=== PATIENT | female | born 1985 | race Caucasian/White ===

== ENCOUNTER 2022-12-22 17:48 | Emergency (ER) | payer OTHER, SELFPAY ==
[2022-12-22 18:03] VITALS: BP 141/90; PULSE 116; RESP 20; TEMP 36.4; O2SAT 99; BMI 23.9
--- NOTE | 2022-12-22 18:09 | CRLHL7_ITS ---
For Patients: As a result of the Cures Act, medical imaging exams and procedure reports are released immediately into your electronic medical record. You may view this report before your referring provider. If you have questions, please contact your health care provider. Indication: .KICKED BY HORSE AND FELL Technique: Two views left forearm. Comparison: None. Findings/Impression: Acute complete nondisplaced fracture of the proximal aspect of the distal 3rd shaft of the ulna. Adjacent soft tissue swelling. Joint spaces are maintained. Bony mineralization is age appropriate. Dictated by Axel Banks MD @ 12/22/2022 7:23:59 PM (Electronically Signed)
--- NOTE | 2022-12-22 18:09 | CRLHL7_ITS ---
For Patients: As a result of the Century Cures Act, medical imaging exams and procedure reports are released immediately into your electronic medical record. You may view this report before your referring provider. If you have questions, please contact your health care provider. INDICATION: KICKED BY HORSE AND FELL TECHNIQUE: Chest 2 views. COMPARISON: 01/10/10 FINDINGS: Cardiovascular and mediastinum: Heart size and vasculature are normal in caliber and appearance. Mediastinum is within normal limits. Lungs and pleural spaces: Lungs are clear. No sign of infiltrate or mass. No sign of pleural effusion. No pneumothorax. Bones and soft tissues: No significant findings. IMPRESSION: Unremarkable chest. Dictated by: Axel Collins MD @ 12/22/2022 18:37:28 (Electronically Signed)
--- NOTE | 2022-12-22 18:12 | ED_ITS ---
HPI - Fall General Chief Complaint: Fall/Minor Trauma Stated Complaint: fell of a horse- got hit on her chest/arm/wrist Time Seen by Provider: 12/22/22 18:01 History of Present Illness HPI Narrative: This patient comes in for evaluation and treatment of injuries from a fall from her horse. She states that she was dismounting or horse and got her foot caught in the stir up at which time the horse started getting jumpy. At some point the horse kicked her in the chest. She states that she had trouble catching her breath for a good minute or so. She did not hit her head or have loss of consciousness. She does have a laceration on her left forearm. She has bruising on the lower anterior chest also. She was able to get up and ambulate and over self home and then came in with her daughter for evaluation. Related Data Previous Rx's Medication Instructions Recorded cephalexin 500 mg capsule 500 mg PO TID 7 days #21 caps 12/22/22 hydrocodone 5 mg-acetaminophen 325 1 tab PO Q4-6H PRN pain #20 tabs 12/22/22 mg tablet ketorolac 10 mg tablet 10 mg PO Q8H 5 days #15 tabs 12/22/22 Allergies Allergy/AdvReac Type Severity Reaction Status Date / Time ciprofloxacin Allergy Intermediate Verified 12/22/22 18:02 Review of Systems Status of ROS: Reports: 10 or more systems reviewed and unremarkable except as noted in History and below Narrative: Constitutional: No fevers, no weight gain or loss. Eyes: No discharge. No vision changes. HENT: No congestion, no sore throat, no ear pain. Cardiovascular: No palpitations. Respiratory: No shortness of breath, no wheezes, no cough. Gastrointestinal: No abdominal pain, no vomiting, no diarrhea. Genitourinary: No dysuria, no hematuria. Musculoskeletal: Normal range of motion. Skin: No rashes, no pruritis. Neurological: No dizziness, weakness, sensory change, speech change. Endo/Heme/Allergies: No bruising or bleeding. No polydipsia. Pysch: no suicidality, no anxiety, no insomnia. All other systems reviewed and are negative. PFSH PFSH Social History Smoking Status: Never smoker Do you use any of these nicotine containing products: None How often do you have a drink containing alcohol: never AUDIT-C Alcohol total score: 0 Non-prescribed substance use: denies use Exam Narrative: Exam Narrative: Constitutional: Well-developed, well-nourished, no acute distress. HEENT: Normocephalic, atraumatic. Neck: Normal range of motion. Nontender. Supple. Heart: Regular. No murmurs. Normal rate. Intact distal pulses. Lungs: Clear to auscultation. No wheezes, rhonchi, or rales. Chest: Erythema and bruising on the left anterior lower chest overlying the lower sternum. Abdomen: Normal bowel sounds. Nontender. No rebound tenderness. Genitalia: Deferred. Back: No midline tenderness. Normal range of motion. Extremities: Normal range of motion. Abrasion with mild swelling of her right wrist with normal range of motion of the wrist joint. The left forearm has a 2 cm linear laceration on the ulnar aspect. Skin: Intact. No rash. Warm. No erythema or pallor. Neurologic: No altered sensation. No weakness. Alert and oriented. GCS is 15. Psychiatric: No suicidality. No anxiety or depression. No insomnia. Nursing notes and vitals signs are reviewed. Const: Vital Signs, click to edit/add: Vital Signs - 24 hr 12/22/22 18:03 Temperature 97.5 F L Pulse Rate [Right Pulse Oximeter] 116 H Respiratory Rate 20 Blood Pressure [Ri ght Upper Arm] 141/90 H Pulse Oximetry 99 Oxygen Delivery Me thod Room Air Course Vital Signs Vital signs: Initial Vital Signs Temperature 97.5 F L 12/22/22 18:03 Temperature Source Temporal Artery Scan 12/22/22 18:03 Pulse Rate 116 H 12/22/22 18:03 Pulse Rhythm Regular 12/22/22 18:03 Respiratory Rate 20 12/22/22 18:03 Blood Pressure 141/90 H 12/22/22 18:03 Blood Pressure Mean 107 H 12/22/22 18:03 Blood Pressure Position Sitting 12/22/22 18:03 Pulse Oximetry 99 12/22/22 18:03 Oxygen Delivery Method Room Air 12/22/22 18:03 Vital Signs Temperature 97.5 F L 12/22/22 18:03 Pulse Rate 116 H 12/22/22 18:03 Respiratory Rate 20 12/22/22 18:03 Blood Pressure 141/90 H 12/22/22 18:03 Pulse Oximetry 99 12/22/22 18:03 Oxygen Delivery Method Room Air 12/22/22 18:03 Temperature 97.5 F L 12/22/22 18:03 Pulse Rate 116 H 12/22/22 18:03 Respiratory Rate 20 12/22/22 18:03 Blood Pressure 141/90 H 12/22/22 18:03 Pulse Oximetry 99 12/22/22 18:03 Oxygen Delivery Method Room Air 12/22/22 18:03 MDM - Fall MDM Narrative Medical decision making narrative: This patient comes in after injuries from getting kicked by horse. She has a bruise on her lower anterior chest. Chest x-ray is obtained and shows no acute findings. Fast exam also returns with normal results. X-ray of her left forearm does show a nondisplaced fracture through the shaft of the ulna. The patient has a 2 cm linear laceration in this same area. The wound was cleansed and after anesthesia with 1% lidocaine with epinephrine 3 sutures were placed in interrupted fashion. Wound was bandaged and then her arm was placed in a volar splint using Ortho Glass material. The patient also received a rib belt. A prescription for Keflex is provided as this is technically an open fracture. She also received prescription for Toradol and Babcock. She is instructed to follow-up with orthopedic clinic for ongoing management. Sutures will need to be removed in 7-10 days. Procedure name: ED POC EFAST Performing physician: Dr. Hoffmann Indication: Blunt thoracoabdominal trauma Findings: Hepato renal space shows no evidence of free fluid. Subphrenic and/or splenorenal space shows no evidence of free fluid. Suprapubic views show no evidence of free fluid. Subxiphoid (or PSLA) cardiac view shows no evidence of free pericardial fluid and sliding lung signs are present in left and right apical lung views. Interpretation: Negative EFAST exam. ECG Data Attestation: I personally reviewed and interpreted this ECG as follows: Interpretation: Sinus tachycardia, rate 103 beats per minute. There are no specific ST or T- wave abnormalities. Discharge Plan Discharge Clinical Impression: Chest wall contusion, Fracture of forearm, distal, left, open Patient Disposition: Home w/ Parent or Adult Condition: Stable Additional Instructions: Wear splint and follow-up with orthopedic clinic. Call [phone] for appointment. Sutures will need to be removed from the left forearm in 7-10 days. Wear rib belt as needed and take medications as needed and directed. Return if worsening. Prescriptions: New hydrocodone-acetaminophen 5-325 mg tablet 1 tab PO Q4-6H PRN (Reason: pain) Qty: 20 0RF ketorolac 10 mg tablet 10 mg PO Q8H 5 Days Qty: 15 0RF cephalexin 500 mg capsule 500 mg PO TID 7 Days Qty: 21 0RF Follow Up/Referrals: Shruthi Haley MD [Staff Physician] - Stand Alone Forms: [facility] Info Instructions
[2022-12-22] MEDS: HYDROCODONE-ACETAMIN 5-325 MG 1 TAB PO (18:17)
== END 2022-12-22 20:05 | disposition home or self-care (01) ==
PROVIDERS: Emergency Provider Emergency Medicine Emergency Medical Services
DX: S52.202A Unspecified fracture of shaft of left ulna, initial encounter for closed fracture (principal); S51.812A Laceration without foreign body of left forearm, initial encounter; V80.010A Animal-rider injured by fall from or being thrown from horse in noncollision accident, initial encounter; S20.219A Contusion of unspecified front wall of thorax, initial encounter
CPT/HCPCS: 12001; 71046; 73090; 76604; 76705; 93005; 93308; 99284; A9270

== ENCOUNTER 2024-03-15 16:09 | Emergency (ER) | payer OTHER, SELFPAY ==
--- NOTE | 2024-03-15 16:12 | CRLHL7_ITS ---
For Patients: As a result of the Century Cures Act, medical imaging exams and procedure reports are released immediately into your electronic medical record. You may view this report before your referring provider. If you have questions, please contact your health care provider. Indication: Left calf swelling Technique: Real-time longitudinal and transverse sonographic grayscale imaging with and without compression, as well as color and duplex Doppler imaging before and after augmentation, was obtained of the deep system of the left lower extremity, including the common femoral, femoral, popliteal, posterior tibial, and peroneal veins. Comparison: None. Findings: Common femoral vein: No evidence of thrombus. Femoral vein: No evidence of thrombus. Popliteal vein: No evidence of thrombus. Calf veins: Patent. Impression: No ultrasound evidence of deep venous thrombosis. Dictated by Yossi Payan MD @ 03/15/2024 5:22:00 PM (Electronically Signed)
--- NOTE | 2024-03-15 16:12 | ED.GENADULT ---
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 She is generally healthy but does smoke tobacco. She presents to the ER today with atraumatic pain and swelling involving her left calf. She recalls that she woke up with a crampy feeling in her left calf 2 days ago on Wednesday morning. She does not recall any previous injury any new activity that would have injured her calf lately. There may have been a charley horse that morning when she woke up. Ever since then she has had a low-grade ache in her left calf. Hurts more when she dorsiflexes then when she plantar flexes her ankle. She has not noticed any bruising. No redness or swelling warmth. No fever. No pain in her knee. No pain down to her ankle. No pain in her quad or hamstring or in her thigh. No back pain. No numbness or weakness in her leg. She is a tobacco user. She has no current control use. No recent travel or immobilization. No history of DVT or PE. She is generally healthy. She did recently have a shingles outbreak on her face but has not completely recovered. No rash on her calf. Related Data Home Medications ?Medication ?Instructions ?Recorded ?Confirmed bupropion HCl 150 mg 24 hr tablet, 150 mg PO QAM 12/25/22 03/15/24 extended release escitalopram oxalate 10 mg tablet 10 mg PO DAILY 12/25/22 03/15/24 lorazepam 0.5 mg tablet 0.5 mg PO DAILY PRN 12/25/22 03/15/24 Allergies Allergy/AdvReac Type Severity Reaction Status Date / Time phenazopyridine Allergy Severe Anaphylaxis Verified 03/15/24 16:17 ciprofloxacin Allergy Intermediate Verified 03/15/24 16:17 [facility] Medical History Recurrent herpes labialis ?B00.1 - Herpesviral vesicular dermatitis (ICD-10) Nicotine dependence ?F17.200 - Nicotine dependence, unspecified, uncomplicated (ICD-10) Mixed anxiety depressive disorder ?F41.8 - Other specified anxiety disorders (ICD-10) Fatigue ?R53.83 - Other fatigue (ICD-10) Endometriosis ?N80.9 - Endometriosis, unspecified (ICD-10) Depression ?F32.A - Depression, unspecified (ICD-10) Chronic insomnia ?F51.04 - Psychophysiologic insomnia (ICD-10) Surgical History Status post hysterectomy (02/12/16) ?Z90.710 - Acquired absence of both cervix and uterus (ICD-10) Status post cone biopsy of cervix (2010) ?Z98.890 - Other specified postprocedural states (ICD-10) Family History Mother Breast cancer, Onset Age: 48 Paternal Grandfather Colon cancer, Onset Age: 60 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 Polite. Non-toxic appearing. Politely declines offered pain medication. HENT: Head: Atraumatic. No signs of injury. Nose: No nasal discharge. Mouth/Throat: Mucous membranes are moist. . No trismus. No stridor. Airway patent. Eyes: Conjunctivae normal and EOM are normal. Pupils are equal, round, and reactive to light. Right eye exhibits no discharge. Left eye exhibits no discharge. No icterus. Neck: Normal range of motion. Neck supple. No adenopathy. No stridor. Cardiovascular: Normal rate and regular rhythm. No murmur heard. No murmurs, rubs, or gallops. Brisk capillary refill Pulmonary/Chest: Effort normal. No stridor. No respiratory distress. No wheezes.No rhonchi. No rales. No retractions. Abdominal: Soft. Bowel sounds are normal. No distension. No mass. There is no tenderness. There is no rebound and no guarding. Musculoskeletal: Upper extremities are normal. Right lower extremity is normal. Left lower extremity: Hip is nontender. Normal range of motion. Quadriceps, hamstring, femur, thigh are nontender. Normally motion in the knee. No knee tenderness. No swelling. No redness. No warmth. No pain or swelling in the popliteal fossa. Inspection of the calf reveals subtle swelling when compared to the right. No bruising. No redness. No rash. No warmth to palpation to suggest a cellulitis. She is mildly tender over the muscle belly of the gastrocs/soleus. Not really tender over the Achilles tendon itself. She notes pain is increased when she plantar flexes her ankle against resistance. She also has mild pain with dorsiflexion but much less so. Ankle is nontender, no swelling. Foot is nontender no swelling. Strong DP and PT pulses. Normal brisk distal cap refill. No back tenderness. Neurological: Alert. Normal strength. No cranial nerve deficit or sensory deficit. Coordination normal. GCS eye subscore is 4. GCS verbal subscore is 5. GCS motor subscore is 6. Intact distal sensory function in the medial and lateral foot, dorsal 1st webspace, sole of the foot, mediolateral calf. Strength 5/5 bilaterally in the toe extensors, toe flexors, gastrocnemius, tibialis anterior, quadriceps, hamstring. Skin: Skin is warm. No rash noted. Const: Vital Signs, click to edit/add: Vital Signs - 24 hr 03/15/24 16:15 Temperature 98.1 F Pulse Rate [Left P ulse Oximeter] 88 Respiratory Rate 18 Blood Pressure [Ri ght Upper Arm] 124/84 Pulse Oximetry 99 Oxygen Delivery Me thod Room Air Course Vital Signs Vital signs: Initial Vital Signs Temperature 98.1 F 03/15/24 16:15 Temperature Source Temporal Artery Scan 03/15/24 16:15 Pulse Rate 88 03/15/24 16:15 Pulse Rhythm Regular 03/15/24 16:15 Pulse Strength 4+ Bounding 03/15/24 16:15 Respiratory Rate 18 03/15/24 16:15 Blood Pressure 124/84 03/15/24 16:15 Blood Pressure Mean 97 03/15/24 16:15 Blood Pressure Position Sitting 03/15/24 16:15 Pulse Oximetry 99 03/15/24 16:15 Oxygen Delivery Method Room Air 03/15/24 16:15 Vital Signs Temperature 98.1 F 03/15/24 16:15 Pulse Rate 88 03/15/24 16:15 Respiratory Rate 18 03/15/24 16:15 Blood Pressure 124/84 03/15/24 16:15 Pulse Oximetry 99 03/15/24 16:15 Oxygen Delivery Method Room Air 03/15/24 16:15 Temperature 98.1 F 03/15/24 16:15 Pulse Rate 88 03/15/24 16:15 Respiratory Rate 18 03/15/24 16:15 Blood Pressure 124/84 03/15/24 16:15 Pulse Oximetry 99 03/15/24 16:15 Oxygen Delivery Method Room Air 03/15/24 16:15 Medical Decision Making MDM Narrative Medical decision making narrative: 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 She did have a cramp in her left calf muscle and has had pain since then. Concern here is for possible DVT of left lower extremity. Ultrasound is obtained and is fortunately negative for DVT. Discussed with the patient that although ultrasound is normal in reassuring, if pain is persistent for 7 days or gets worse, she should return to the ER for re-evaluation and repeat DVT. If she has worsening pain or other symptoms she should come back to the ER immediately and not wait. At this point exam does not show any evidence for any redness or cellulitis. No palpable or alter sonographically apparent hematoma. No evidence for shingles. Not having any back pain or any radicular numbness or pain to suggest a lumbar radiculopathy. Has been no recent trauma to raise concern for possible tibia or fibular fracture. With acute onset of pain 2 mornings ago, I have low suspicion for other cause such as evolving tumor. However if pain worsens or swelling progresses she would require further evaluation such as MR imaging or radiography. She has strong distal pulses and normal capillary refill. No evidence for acute limb ischemia. No associated knee or ankle pain to raise concern for knee sprain her ankle sprain or any joint infection or gout. Patient is comfortable with plan to pursue watchful waiting at home. We discussed rest, ice, elevation, NSAIDs. She understands return precautions and need for follow-up if not resolved for repeat ultrasound. Imaging Data US venous LLE: Attestation: I have reviewed the pertinent imaging results. Radiologist's impression: Findings: Common femoral vein: No evidence of thrombus. Femoral vein: No evidence of thrombus. Popliteal vein: No evidence of thrombus. Calf veins: Patent. Impression: No ultrasound evidence of deep venous thrombosis. Discharge Plan Discharge Clinical Impression: Pain of left calf Patient Disposition: Home, Self-Care Condition: Stable Instructions: Leg Pain (ED) Additional Instructions: As we discussed, your ultrasound looks good tonight. For now we suspect your calf pain is probably due to a muscle injury from the cramp. However, please monitor carefully. If you have worsening swelling, discoloration of your foot or leg, new redness or rash or fever, or any concerns, please come back to the ER or see your doctor right away. If the pain is not completely resolved within 7 days, please follow-up with the ER for a repeat ultrasound. Prescriptions: No Action escitalopram oxalate 10 mg tablet 10 mg PO DAILY bupropion HCl 150 mg tablet extended release 24 hr 150 mg PO QAM lorazepam 0.5 mg tablet 0.5 mg PO DAILY PRN Follow Up/Referrals: Provider,Not a Local [Primary Care Provider] - Stand Alone Forms: [employer] Info Instructions
[2024-03-15 16:15] VITALS: BP 124/84; PULSE 88; RESP 18; TEMP 36.7; O2SAT 99; BMI 24.8
--- OUTSIDE RECORDS SUMMARY | 2024-03-15 17:11 | XMS_ITS | Clinical Summary ---
Author Organization [facility] Address [place], [place] [address] Care Team Providers Care Batcher Operator Name Role Phone Teddy Montero MD Primary Care Provider + [phone] Allergies Active Allergy Reactions Criticality Noted Date Comments Ciprofloxacin Anaphylaxis High 07/02/2021 Phenazopyridine Anaphylaxis High 07/02/2021 Medications Medication Sig Dispensed Refills Start Date End Date Status escitalopram oxalate (LEXAPRO) 10 mg tabletIndications:D epression, major, single episode, moderate (HC),Anxiety Take 1 Tablet (10 mg) by mouth every morning. 90 Tablet 4 09/02/2023 Active buPROPion (WELLBUTRIN XL) 300 mg Extended-Release tabletIndications:D epression, major, single episode, moderate (HC) Take 1 Tablet (300 mg) by mouth once daily. 90 Tablet 3 09/02/2023 Active LORazepam (ATIVAN) 0.5 mg tabIndications:Ibrahima c attack TAKE 1 TABLET(0.5 MG) BY MOUTH EVERY 6 HOURS NEEDED FOR ANXIETY 15 Tablet 11/08/2023 Active valACYclovir (VALTREX) 1 gram tabletIndications:H erpes labialis TAKE 2 TABLETS(2 GRAMS) BY MOUTH TWICE DAILY FOR 1 DAY. MAY REPEAT DOSE NEEDED 16 Tablet 1 11/08/2023 Active HYDROcodone-acetami nophen (5-325 mg/tablet)Indicatio ns:Herpes zoster without complication Take 1 Tablet by mouth every 6 hours if needed for Pain. Max acetaminophen dose: 4000 mg in 24 hrs. 12 Tablet 12/13/2023 Active Active Problems Problem Noted Date Diagnosed Date Depression, major, single episode, moderate 05/11 Panic attack 06/04/2022 Anxiety 01/22/2022 Resolved Problems Problem Noted Date Diagnosed Date Resolved Date Adjustment disorder with depressed mood 01/22/2022 06/04/2022 WARTS, VIRAL NOS 02/01/2001 12/22/2021 CONTRACEPTIVE PRESCRIPTION, ORAL AGENT 03/11/2000 01/22/2022 Other acne 09/22/1999 01/22/2022 DEPRESSIVE DISORD, MAJOR SNGL EPISD, MILE 09/18/1999 01/22/2022 Dysmenorrhea 08/11/1999 01/22/2022 Encounters Date Type Department Care Team Description 03/15/2024 Nurse [place] [facility] [place] [address] [facility] [place] [address] Teddy Montero MD Leg Pain/problem 03/15/2024 Telephone [facility] [place] [address] [place], [place] [id number] Teddy Montero MD Error-please disregard from Last 3 Months Immunizations Name Administration Dates Next Due DTP 08/11/1999 Hepatitis B (Adult) 11/07/2003 Hepatitis B (Peds) 11/07/2003 Influenza Intradermal PF 18-64 yrs 02/10/2016,,03/04/2014 Influenza RIV4 (Age 18+ Year s) PRESERV FREE 02/08/2019 Influenza, IIV3 (Age 6-35 mos) ,02/09/2018,01/28/2012,2010,02/11/2010 Influenza, IIV4 03/29/2023,02/18/2022,02/19/2021 Influenza, Intradermal, Quad rivalent, Pf 02/24/2017 Influenza,LAIV4 Live Intrana marv (Flumist) 02/21/2013 MMR 08/11/1999,01/04/1997 Oral Polio Vaccine 08/11/1999 Polio Virus, Unspecified 03/22/1985,01/18/1985 Td (Age >=7 Years) 01/04/1997 Tdap 05/26/2018,01/28/2012 Family History Medical History Relation Name Comments Cancer-breast Mother Genetic Other 1 mother: A\T\W~f ather: asthma, smoker~grprs: ovarian CA, lung CA, multiple myeloma, AODM~sibs: A\T\W Genetic Other 2 mother: A\T\W~f ather: asthma, smoker~grprs: ovarian CA, lung CA, multiple myeloma, AODM~sibs: A\T\W~hypertension Relation Name Status Comments Mother Alive Other 1 Other 2 Social History Tobacco Use Types Packs/Day Years Used Date Smoking Tobacco: Former Cigarettes Q uit: 03/01/2021 Smokeless Tobacco: Never Tobacco Cessation:Counseling Given: Not Answered Comments:smoking 1-2 a day Alcohol Use Standard Drinks/Week Comments Yes 0 (1 standard drink = 0.6 oz pur e alcohol) Alcoholic Drinks/day: 0 PHQ-2 Answer Date Recorded PHQ-2 TOTAL SCORE 3 09/01/2023 Social Connections Answer Date Recorded Frequency of Communication with Friends and Fami ly Not on file 12/22/2021 Sex and Gender Information Value Date Recorded Sex Assigned at Not on file Gender Identity Not on file Sexual Orientation Not on file Obstetrics History Last Filed Vital Signs Vital Sign Reading Time Taken Comments Blood Pressure 120/80 01/22/2022 2:12 PM CDT Pulse 88 01/22/2022 2:12 PM CDT Temperature 36.6 ??C (97.8 ??F) 07/02/2021 6:00 PM CS T Respiratory Rate 18 07/02/2021 6: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 Oxygen Saturation 100% 07/02/2021 6: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 Inhaled Oxygen Concentration - - Weight 59.4 kg (131 lb) 01/22/2022 2:12 PM CDT Height 160 cm (5' 3) 01/22/2022 2:12 PM CDT Body Mass Index 23.21 01/22/2022 2:12 PM CDT Plan of Treatment Health Maintenance Due Date Last Done Comments HIV for age 15-65 11/23/1999 BMI (ht and wt on same day) for age 18+ 01/22/2023 01/22/2022 COVID-19 vaccine series ( season) 2024 02/28/2021, 02/07/2021 Influenza for age 9-49 01/09/2024 3, 02/18/2022, 02/19/2021, Additional history exists Depression screening for age 12+ 09/01/2024 09/02/2023, 09/01/2023, 09/01/2023, Additional history exists Tetanus booster 05/26/2028 05/26/2018, 01/09, 01/04/1997 Hepatitis C screening for age 18-79 Completed 11/07/2003 Tdap Completed 05/26/2018, 01/28/2012 Pneumococcal series for age 6-64 Aged Out No longer eligible based on patient's age to complete this topic Procedures Procedure Name Priority Date/Time Associated Diagnosis Comments ANTI HCV Routine 11/07/2003 9:35 AM CDT from Last 3 Months or Most Recently Relevant to Health Maintenance Results * ANTI HCV (11/07/2003 9:35 AM CDT) ANTI HCV Non-reactiv e 11/07/2003 9:35 AM CDT Narrative 11/09/2003 11:25 AM CDT Ordered by an unspecified provider. Other Clinical Staff SEND OUTS from Last 3 Months or Most Recently Relevant to Health Maintenance Care Teams Batcher Operator Relationship Specialty [place] [address] [place] [address] PCP - General Family Practice 12/13/23
== END 2024-03-15 17:37 | disposition home or self-care (01) ==
PROVIDERS: Emergency Provider Emergency Medicine
DX: M79.605 Pain in left leg (principal)
CPT/HCPCS: 93971; 99283; 99284

== ENCOUNTER 2024-03-29 03:24 | Emergency (ER) | payer OTHER, SELFPAY ==
[2024-03-29] VITALS (10 sets, daily range): BP systolic 113–153; BP diastolic 66–110; PULSE 85–145; RESP 28–60; TEMP 37.3; O2SAT 85–99; BMI 24.8
[2024-03-29] MEDS: IPRAT-ALBUT 0.5-2.5 MG/3 ML NEB 1 NEB IH (03:50)
--- NOTE | 2024-03-29 03:50 | CRLHL7_ITS ---
For Patients: As a result of the Century Cures Act, medical imaging exams and procedure reports are released immediately into your electronic medical record. You may view this report before your referring provider. If you have questions, please contact your health care provider. INDICATION: Cough, dyspnea, left lower chest pain COMPARISON: 12/22/2022 TECHNIQUE: PA and lateral 2 view chest. FINDINGS: Lung volumes are good. Focal consolidation in the medial basal segments of the left lower lobe. No findings of cavitation. No pulmonary edema. No pleural effusion. No pneumothorax. No pneumomediastinum. Normal cardiomediastinal silhouette. Bones: Normal for age. IMPRESSION: Left lower lobe pneumonia. No cavitation. No parapneumonic effusion. Dictated by Nadia Miles MD @ 03/29/2024 4:35:38 AM (Electronically Signed)
--- NOTE | 2024-03-29 03:51 | ED.GENADULT ---
HPI - General Adult General Date Seen: 03/29/24 Chief complaint: Shortness of Breath/Dyspnea Stated complaint: Short of breath Time Seen by Provider: 03/29/24 03:50 History of Present Illness HPI narrative: 38-year-old female who I saw here in the ER couple of weeks ago for atraumatic left calf pain with a negative DVT ultrasound in the ER (up like calf pain is completely resolved). She presents to the ER tonight with her for evaluation of cough and shortness of breath and left anterolateral lower chest pain. She has had a cough with some shortness of breath for about 5 days, since last Wednesday morning. Cough has been fairly persistent, nonproductive. She has been a little bit short of breath all week and in for the past couple of days. For couple of days she had some subjective chills and probably was running a fever but did not measure her temperature. Tonight her breathing became more short. She also noticed that she has some gurgling or a discomfort like there is fluid rattling in her left lower ribs. She has been trying to rub her chest to get the fluid out but it just woke up loose. She is not running a fever tonight She is not having any ongoing pain in her calf. No leg swelling. Her daughter is also sick with similar symptoms. She is a smoker. She has no previous history of asthma or COPD. She has never had to use an inhaler. Related Data Home Medications ?Medication ?Instructions ?Recorded ?Confirmed bupropion HCl 150 mg 24 hr tablet, 150 mg PO QAM 12/25/22 03/15/24 extended release escitalopram oxalate 10 mg tablet 10 mg PO DAILY 12/25/22 03/15/24 lorazepam 0.5 mg tablet 0.5 mg PO DAILY PRN 12/25/22 03/15/24 Allergies Allergy/AdvReac Type Severity Reaction Status Date / Time phenazopyridine Allergy Severe Anaphylaxis Verified 03/15/24 16:17 ciprofloxacin Allergy Intermediate Verified 03/15/24 16:17 [facility] Medical History Recurrent herpes labialis ?B00.1 - Herpesviral vesicular dermatitis (ICD-10) Nicotine dependence ?F17.200 - Nicotine dependence, unspecified, uncomplicated (ICD-10) Mixed anxiety depressive disorder ?F41.8 - Other specified anxiety disorders (ICD-10) Fatigue ?R53.83 - Other fatigue (ICD-10) Endometriosis ?N80.9 - Endometriosis, unspecified (ICD-10) Depression ?F32.A - Depression, unspecified (ICD-10) Chronic insomnia ?F51.04 - Psychophysiologic insomnia (ICD-10) Surgical History Status post hysterectomy (02/12/16) ?Z90.710 - Acquired absence of both cervix and uterus (ICD-10) Status post cone biopsy of cervix (2010) ?Z98.890 - Other specified postprocedural states (ICD-10) Family History Mother Breast cancer, Onset Age: 48 Paternal Grandfather Colon cancer, Onset Age: 60 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 Alert. Very anxious, tachypneic, tachycardic. Seems to be hyperventilating. There is probably some component of panic overlying her other symptoms. She was not hypoxic but nurses placed her on nasal cannula to see if it would help assuage some of her anxiety and calm her breathing. HENT: Head: Atraumatic. Nose: Nose normal. Mouth/Throat: Oral mucosa is clear and moist. no trismus. Pharynx normal. Tonsils symmetric. No tonsillar enlargement, erythema, or exudate. Eyes: Conjunctivae normal. EOM normal. Pupils equal, round, and reactive to light. No scleral icterus. Neck: Normal range of motion. Neck supple. No tracheal deviation present. Cardiovascular: Tachycardic, about 105, regular rhythm. No gallop. No friction rub. No murmur heard. Symmetric radial artery pulses Pulmonary/Chest: Breathing rapidly.. No stridor. No respiratory distress. She has been taking rapid breast but is not moving a lot of air. There is limited airflow in her lungs which could represent significant bronchospasm but no focal rhonchi. No definite wheezing. No wheezes. No rales. No rhonchi . No tenderness. Abdominal: Soft. No distension. No mass. No tenderness. No rebound. No guarding. Musculoskeletal: RUE: Normal range of motion. No tenderness. No deformity LUE: Normal range of motion. No tenderness. No deformity RLE: Normal range of motion. No edema. No tenderness. No deformity . no calf pain or tenderness. LLE: Normal range of motion. No edema. No tenderness. No deformity. No calf pain or tenderness. Neurological: Alert and oriented to person, place, and time. Normal strength. CN II-VII intact. No sensory deficit. GCS eye subscore is 4. GCS verbal subscore is 5. GCS motor subscore is 6. Normal coordination Skin: Skin is warm, pink, well perfused but she is sweaty. Her shirt is damp from perspiration. No rash noted. No pallor. Normal capillary refill. Psychiatric: Normal mood. Polite. Seems anxious. Const: Vital Signs, click to edit/add: Vital Signs - 24 hr 03/29/24 03:24 Temperature 99.1 F Pulse Rate [Right Pulse Oximeter] 145 H Respiratory Rate 60 H Blood Pressure [Le ft Upper Arm] 153/110 H Pulse Oximetry 97 Oxygen Delivery Me thod Room Air Course Vital Signs Vital signs: Initial Vital Signs Temperature 99.1 F 03/29/24 03:24 Temperature Source Temporal Artery Scan 03/29/24 03:24 Pulse Rate 145 H 03/29/24 03:24 Respiratory Rate 60 H 03/29/24 03:24 Blood Pressure 153/110 H 03/29/24 03:24 Blood Pressure Mean 124 H 03/29/24 03:24 Blood Pressure Position Sitting 03/29/24 03:24 Pulse Oximetry 97 03/29/24 03:24 Oxygen Delivery Method Room Air 03/29/24 03:24 Vital Signs Temperature 99.1 F 03/29/24 03:24 Pulse Rate 145 H 11/20/24 03:24 Respiratory Rate 60 H 03/29/24 03:24 Blood Pressure 153/110 H 03/29/24 03:24 Pulse Oximetry 97 03/29/24 03:24 Oxygen Delivery Method Room Air 03/29/24 03:24 Temperature 99.1 F 03/29/24 03:24 Pulse Rate 145 H 03/29/24 03:24 Respiratory Rate 60 H 03/29/24 03:24 Blood Pressure 153/110 H 03/29/24 03:24 Pulse Oximetry 97 03/29/24 03:24 Oxygen Delivery Method Room Air 03/29/24 03:24 Medical Decision Making MDM Narrative Medical decision making narrative: This patient presents to the ER today for evaluation of a cough ongoing for the past or 6 days, with shortness of breath, also some discomfort like fluid rattling in her left lower chest. Differential is broad. She is not having any palpitations. She presented with sinus tachycardia up to 145. She also had an elevated respiratory rate at 60, which per triage nurse seem to be driven primarily by anxiety. We considered possible ACS, however workup with EKG and troponin is negative. HEART score is 1. With a couple of days of symptoms, I do not think the patient needs to be admitted for further sets of enzymes. EKG shows no evidence for pericarditis. Chest x-ray is ordered to evaluate for pneumonia, pneumothorax, pulmonary edema, pleural effusion, rib fracture, cardiomegaly. COVID/influenza PCR ordered. We considered PE for this patient. She did have some recent atraumatic calf pain with a negative DVT. She is not having any ongoing calf pain. Given her presenting tachycardia, we will check D-dimer but overall she is low risk for PE. No wheezing on her initial exam but she just was not moving much air. She is a smoker. Empiric DuoNeb ordered in case there is some component of bronchospasm. Signed out to my oncoming partner Dr. Stevenson. She will recheck the patient after the neb and follow-up on the results of her outstanding chest x-ray, labs. Clinical impression at this time 1. Cough 2. Dyspnea 3. Possible anxiety ECG Data Attestation: I personally reviewed and interpreted this ECG as follows: Interpretation: Normal sinus rhythm Rate: 97 NM: 128 QRS axis: Normal axis. No pathologic Q waves ST segment/T wave: No ST segment elevation or depression. Nonspecific T-wave flattening throughout. QTc: 426 Discharge Plan Discharge Prescriptions: No Action escitalopram oxalate 10 mg tablet 10 mg PO DAILY bupropion HCl 150 mg tablet extended release 24 hr 150 mg PO QAM lorazepam 0.5 mg tablet 0.5 mg PO DAILY PRN Follow Up/Referrals: Provider,Not a Local [Primary Care Provider] -
[2024-03-29 04:23] LABS: Basophils Absolute Auto 0.03 K/uL (0.00-0.30); Basophils Percent Auto 0.4 % (0.0-3.0); Eosinophils Percent Auto 1.3 % (0.0-7.0); Hematocrit 36.2 % (33.0-51.0); Hemoglobin* 12.1 gm/dL (12.0-16.0); Immature Granulocytes Abs Auto 0.02 K/uL (0.00-0.30); Immature Granulocytes Pct Auto 0.3 %; Mean Corpuscular HGB Conc 33 gm/dL (32-36); Mean Corpuscular Hemoglobin 30 pg (26-34); Mean Corpuscular Volume 89 fL (80-100); Monocytes Percent Auto 6.7 % (0.0-11.0); Neutrophils Percent Auto 75.3 % (42.0-72.0); Platelet Count* 270 K/uL (140-440); RDW Coefficient of Variation % 11.5 % (11.5-15.5); Red Blood Count 4.07 m/uL (4.00-5.20); White Blood Count* 7.75 K/uL (4.50-11.00)
[2024-03-29 04:30] LABS: Slide Review Reflex No
[2024-03-29 04:36] LABS: Chloride* 103 mmol/L (96-114); Potassium* 3.4 mmol/L (3.6-5.1); Sodium* 139 mmol/L (135-149)
[2024-03-29 04:39] LABS: Anion Gap 12 mEq/L (7-15); Blood Urea Nitrogen* 11 mg/dL (5-24); Carbon Dioxide* 24 mmol/L (20-32); Creatinine* 0.5 mg/dL (0.5-1.5); Est. Creatinine Clearance* 124.96; Estimated Glomerular Filt Rate 122 ml/min; Glucose* 99 mg/dL (60-115)
[2024-03-29 04:40] LABS: Calcium* 9.7 mg/dL (8.4-10.6)
[2024-03-29 04:46] LABS: D Dimer Quantitative* 0.53 ug/ml (0.00-0.50)
[2024-03-29 04:59] LABS: PCR FLU A Negative PCR FLU A (Negative); PCR FLU B Negative PCR FLU B (Negative); SARS PCR* Negative SARS-CoV-2 (Negative)
--- OUTSIDE RECORDS SUMMARY | 2024-03-29 05:05 | XMS_ITS | Clinical Summary ---
Author Organization [facility] Address [place], [place] [address] Care Team Providers Care Mattress Maker Name Role Phone Teddy Montero MD Primary Care Provider + [phone] Allergies Active Allergy Reactions Criticality Noted Date [...] Department Care Team Description 03/15/2024 [place] [facility] [place] [address] [facility] [place] [address] Teddy Montero MD Leg Pain/problem 03/15/2024 [place] [facility] [place] [address] [place], [place] [phone] Teddy Montero MD Error-please disregard from Last [...] 88 01/22/2022 2:12 PM CDT Temperature 36.6 C (97.8 F) 07/02/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 Respiratory Rate 18 07/02/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 Oxygen Saturation 100% 07/02/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 Inhaled Oxygen Concentration - - Weight 59.4 kg (131 lb) 01/22/2022 2:12 PM CDT Height 160 cm (5' 3) 01/22/2022 2:12 PM CDT Body Mass Index 23.21 01/22/2022 2:12 PM CDT Plan of Treatment Health Maintenance Due Date Last Done Comments HIV for age 15-65 11/23/1999 BMI (ht and wt on same day) for age 18+ 01/22/2023 01/22/2022 COVID-19 vaccine series (2023- season) 2024 02/28/2021, 02/07/2021 Influenza for age [...] Recently Relevant to Health Maintenance Care Teams Mattress Maker Relationship Specialty [place] [id number] [address] [address] PCP - General Family Practice 12/13/23
== END 2024-03-29 05:32 | disposition home or self-care (01) ==
PROVIDERS: Emergency Medicine; Emergency Provider Family Medicine; PCP Family Medicine
DX: J18.9 Pneumonia, unspecified organism (principal)
CPT/HCPCS: 36415; 71046; 80048; 84484; 85025; 85379; 87631; 93005; 99283; 99284; 99285

== ENCOUNTER 2025-03-21 07:22 | Day surgery (SDC) | payer OTHER, SELFPAY ==
[2025-03-21] VITALS (25 sets, daily range): BP systolic 92–152; BP diastolic 57–95; PULSE 65–105; RESP 14–19; TEMP 36.4–37.4; O2SAT 92–100; BMI 24.8; BMI 24.7
--- OUTSIDE RECORDS SUMMARY | 2025-03-21 07:24 | XMS_ITS | Clinical Summary ---
Author Organization [employer] [facility] [employer] Address [address] [place] [id number] Care Team Providers Care School Psychologist Name Role Phone Teddy Montero MD Primary Care Provider + [phone] Allergies Active Allergy Reactions Criticality Noted Date Comments Ciprofloxacin Anaphylaxis High 07/02/2021 Phenazopyridine Anaphylaxis High 07/02/2021 Medications LORazepam (ATIVAN) 0.5 mg tabIndications: Panic attack TAKE 1 TABLET(0.5 MG) BY MOUTH EVERY 6 HOURS NEEDED FOR ANXIETY 15 Tablet 06/16/2024 Active valACYclovir (VALTREX) 1 gram tabletIndicatio ns:Herpes labialis TAKE 2 TABLETS(2 GRAMS) BY MOUTH TWICE DAILY FOR 1 DAY. MAY REPEAT DOSE NEEDED 16 Tablet 1 01/15/2025 Active buPROPion (WELLBUTRIN XL) 300 mg Extended-Releas e tabletIndicatio ns:Depression, major, single episode, moderate (HC) Take 1 Tablet (300 mg) by mouth once daily. 90 Tablet 3 02/15/2025 Active escitalopram oxalate (LEXAPRO) 10 mg tabletIndicatio ns:Depression, major, single episode, moderate (HC),Anxiety Take 1 Tablet (10 mg) by mouth once daily in the morning. 90 Tablet 3 02/15/2025 Active Active Problems Problem Noted Date Diagnosed [...] Encounters Date Type Department Care Team Description 02/15/2025 1:00 PM CDT Office Visit [facility] [address] [place] [address] Teddy Montero MD Physical (Not fasting); Immunization/Injectio n (Flu shot/Declined HPV and COVID-19 /) 02/15/2025 Travel 02/12/2025 Travel 01/13/2025 Refill [facility] [id number] [place], [place] [address] [address] Teddy Montero MD Refill Request (Valacyclovir) 12/25/2024 Refill [facility] [address] [facility] [place] [place] [address] Teddy Montero MD Refill Request (Escitalopram Oxalate, Bupropion) from Last 3 Months Immunizations Immunization Administration Dates Next Due DTP 08/11/1999 Hepatitis B (Adult) 11/07/2003 Hepatitis B (Peds) 11/07/2003 INFLUENZA, IIV3 PF (AGE >= 6 MO) 02/15/2025,11/2024 Influenza Intradermal PF 18-64 yrs 02/10/2016,,03/04/2014 Influenza RIV4 (Age 18+ Year s) PRESERV FREE 02/08/2019 Influenza, IIV3 (Age 6-35 mos) ,02/09/2018,01/28/2012,2010,02/11/2010 Influenza, IIV4 03/29/2023,02/18/2022,02/19/2021 Influenza, Intradermal, Quad rivalent, Pf 02/24/2017 Influenza,LAIV4 Live Intrana marv (Flumist) 02/21/2013 MMR 08/11/1999,01/04/1997 Oral Polio Vaccine 08/11/1999 Polio Virus, Unspecified 03/22/1985,01/18/1985 Td (Age >=7 Years) 01/04/1997 Tdap 05/26/2018,01/28/2012 Family History Medical History Relation Name Comments Suicidality Brother Heart Disease Father Hypertension Father Cancer-breast Mother Genetic Other 1 mother: A\T\W~f ather: asthma, smoker~grprs: ovarian CA, lung CA, multiple myeloma, AODM~sibs: A\T\W Genetic Other 2 mother: A\T\W~f ather: asthma, smoker~grprs: ovarian CA, lung CA, multiple myeloma, AODM~sibs: A\T\W~hypertension Relation Name Status Comments Brother Father Alive Mother Alive Other 1 Other 2 Social History Tobacco Use Types Packs/Day Years Used Date Smoking Tobacco: Every Day Cigarettes 0.5 3.9 Started: 2021; Last attempted to quit: 03/01/2021 Passive Smoke Exposure: Current Smokeless Tobacco: Never Alcohol Use Standard Drinks/Week Comments Yes 0 (1 standard drink = 0.6 oz pur e alcohol) Alcoholic Drinks/day: 0 PHQ-2 Answer Date Recorded PHQ-2 TOTAL SCORE 3 02/15/2025 Social Connections Answer Date Recorded Do you often feel lonely or isolated from those around you? 0 02/12/2025 Financial Resource Strain Answer Date R ecorded Difficulty of Paying Living Expenses 3 02/12/2025 Difficulty of Paying Living Expenses Not on file 02/12/2025 Food Insecurity Answer Date Recorded Do you worry your food will run out before you are able to buy more? 1 02/12/2025 Transportation Needs Answer Date Record ed Does lack of transportation keep you from medica l appointments? 1 02/12/2025 Does lack of transportation keep you from work, meetings or getting things that you need? 1 02/12/2025 Housing Stability Answer Date Recorded What is your housing situation today? 1 02/12/2025 Utilities Answer Date Recorded Do you have trouble paying f or utilities (for example, heat, electricity, water, phone)? 1 02/12/2025 Comments No Sex and Gender Information Value Date Recorded Sex Assigned at Not on file Legal Sex Female 5:24 AM [employer] Gender Identity Not on file Sexual Orientation Not on file Obstetrics History Last Filed Vital Signs Vital Sign Reading Time Taken Comments Blood Pressure 122/78 02/15/2025 1:04 PM CDT Pulse 82 02/15/2025 1:04 PM CDT Temperature 36.6 C (97.8 F) 07/02/2021 6:00 PM CAR PILOT Respiratory Rate 18 07/02/2021 6:00 PM CAR PILOT Oxygen Saturation 100% 02/15/2025 1:04 PM CDT Inhaled Oxygen Concentration - - Weight 64.5 kg (142 lb 4.8 oz) 02/15/2025 1:04 P M CDT Height 162 cm (5' 3.78) 02/15/2025 1:04 PM CDT Body Mass Index 24.59 02/15/2025 1:04 PM CDT Plan of Treatment Health Maintenance Due Date Last Done Comments Pneumococcal series for age 6-49 (1 of 2 - PCV) 11/23/2003 Hepatitis B series for 19+ ( 2 of 3 - 3-dose series) 12/05/2003 11/07/2003, 11/07/2003 HPV series for age 9-45 (1 - 3-dose SCDM series) 11/23/2011 BMI (ht and wt on same day) for age 18+ 02/15/2026 02/15/2025, 01/22/2022 Depression screening for age 12+ 02/15/2026 02/15/2025, 09/11/2024, 09/02/2023, Additional history exists Tetanus booster 05/26/2028 05/26/2018, 01/09, 01/04/1997 RSV vaccine for adults or (1 - 1-dose 75+ series) 11/23/2059 Hepatitis C screening for ag e 18-79 Completed 11/07/2003 HIV for age 15-65 Completed 02/15/2025 Influenza Vaccine Completed 02/15/2025, , 03/29/2023, Additional history exists Procedures Procedure Name Priority Date/Time Associated Diagnosis Comments CBC WITH AUTO DIFFERENTIAL Routine 02/15/2025 1:38 PM CDT Fatigue, unspecified type ANTI HIV 1/2 Routine 02/15/2025 1:38 PM CDT Screening for HIV (human immunodeficiency virus) HEMOGLOBIN A1C Routine 02/15/2025 1:38 PM CDT Diabetes mellitus screening LIPID PANEL W REFLEX MEASURED LDL Routine 02/15/2025 1:38 PM CDT Lipid screening FSH Routine 02/15/2025 1:38 PM CDT Fatigue, unspecified type TSH WITH REFLEX Routine 02/15/2025 1:38 PM CDT Fatigue, unspecified type VITAMIN B12 Routine 02/15/2025 1:38 PM CDT Fatigue, unspecified type CBC WITH AUTO DIFFERENTIAL Routine 02/15/2025 1:38 PM CDT Fatigue, unspecified type ANTI HCV Routine 11/07/2003 9:35 AM CDT from Last 3 Months or Most Recently Relevant to Health Maintenance Results * CBC WITH AUTO DIFFERENTIAL (02/15/2025 1:38 PM CDT) Pathologist [facility] WHITE BLOOD CELL COUNT 6.5 3.8 - 10.8 Thousand/u L 02/16/2025 4:09 AM CDT [facility] RED BLOOD CELL COUNT 4.37 3.80 - 5.10 Million/uL 02/16/2025 4:09 AM CDT [facility] HEMOGLOBIN 13.3 11.7 - 15.5 g/dL 02/16/2025 4:09 AM CDT [facility] HEMATOCRIT 39.9 35.0 - 45.0 % 02/16/2025 4:09 AM CDT [facility] MCV 91.3 80.0 - 100.0 fL 02/16/2025 4:09 AM CDT [facility] MCH 30.4 27.0 - 33.0 pg 02/16/2025 4:09 AM CDT [facility] MCHC 33.3 32.0 - 36.0 g/dL 02/16/2025 4:09 AM CDT [facility] Comment: For adults, a slight decrease in the calculated MCHC value (in the range of 30 to 32 g/dL) is most likely not clinically significant; however, it should be interpreted with caution in correlation with other red cell parameters and the patient's clinical condition. RDW 12.0 11.0 - 15.0 % 02/16/2025 4:09 AM CDT [facility] PLATELET COUNT 261 140 - 400 Thousand/u L 02/16/2025 4:09 AM CDT [facility] MPV 10.9 7.5 - 12.5 fL 02/16/2025 4:09 AM CDT [facility] NEUTROPHILS 63 % 02/16/2025 4:09 AM CDT [facility] LYMPHOCYTES 28.7 % 02/16/2025 4:09 AM CDT [facility] MONOCYTES 5.7 % 02/16/2025 4:09 AM CDT [facility] EOSINOPHILS 1.5 % 02/16/2025 4:09 AM CDT [facility] BASOPHILS 1.1 % 02/16/2025 4:09 AM CDT [facility] ABSOLUTE NEUTROPHILS 4095 1500 - 7800 cells/uL 02/16/2025 4:09 AM CDT [facility] ABSOLUTE LYMPHOCYTES 1866 850 - 3900 cells/uL 02/16/2025 4:09 AM CDT [facility] ABSOLUTE MONOCYTES 371 200 - 950 cells/uL 02/16/2025 4:09 AM CDT [facility] ABSOLUTE EOSINOPHILS 98 15 - 500 cells/uL 02/16/2025 4:09 AM CDT [facility] ABSOLUTE BASOPHILS 72 0 - 200 cells/uL 02/16/2025 4:09 AM CDT [facility] Blood BLOOD SPECIMEN / Unknown [facility] / Unknown 02/15/2025 1:38 PM CDT 02/15/2025 1:38 PM CDT us Teddy Montero MD HEMATOLOGY Final Result [facility] [address] [address] [place] [address], * HEMOGLOBIN A1C (02/15/2025 1:38 PM CDT) HEMOGLOBIN A1C 5.5 <5.7 % 02/16/2025 5:15 AM CDT [facility] Comment: For the purpose of screening for the presence of diabetes: <5.7% Consistent with the absence of diabetes 5.7-6.4% Consistent with increased risk for diabetes (prediabetes) > or =6.5% Consistent with diabetes This assay result is consistent with a decreased risk of diabetes. Currently, no consensus exists regarding use of hemoglobin A1c for diagnosis of diabetes in children. According to [place] Diabetes Association (ADA) guidelines, hemoglobin A1c <7.0% represents optimal control in non- diabetic patients. Different metrics may apply to specific patient populations. Standards of Medical Care in Diabetes(ADA). Blood BLOOD SPECIMEN / Unknown [facility] / Unknown 02/15/2025 1:38 PM CDT 02/15/2025 1:38 PM CDT us Teddy Montero MD CHEMISTRY Final Result Performing Organization Address [facility] Co de Phone Number [facility] [address] [address], * TSH WITH REFLEX (02/15/2025 1:38 PM CDT) TSH W/REFLEX TO FT4 1.19 mIU/L 02/16/2025 6:39 AM CDT [email or web address] Comment: Reference Range > or = 20 Years 0.40-4.50 Ranges First trimester 0.26-2.66 Second trimester 0.55-2.73 Third trimester 0.43-2.91 Blood BLOOD SPECIMEN / Unknown [facility] / Unknown 02/15/2025 1:38 PM CDT 02/15/2025 1:38 PM CDT us Teddy Montero MD CHEMISTRY Final Result Performing Organization Address [facility] Co de Phone Number [facility] [address] [address], [place] [phone] * (ABNORMAL) LIPID PANEL W REFLEX MEASURED LDL (02/15/2025 1:38 PM CDT) CHOLESTEROL, TOTAL 192 <200 mg/dL 02/16/2025 4:02 AM CDT [email or web address] TRIGLYCERIDES 67 <150 mg/dL 02/16/2025 4:02 AM CDT [email or web address] HDL CHOLESTEROL 63 > OR = 50 mg/dL 02/16/2025 4:02 AM CDT [email or web address] NON HDL CHOLESTEROL 129 <130 mg/dL (calc) 02/16/2025 4:02 AM CDT [email or web address] Comment: For patients with diabetes plus 1 major ASCVD risk factor, treating to a non-HDL-C goal of <100 mg/dL (LDL-C of <70 mg/dL) is considered a therapeutic option. CHOL/HDLC RATIO 3.0 <5.0 (calc) 02/16/2025 4:02 AM CDT [email or web address] LDL-CHOLESTEROL 114(H) mg/dL (calc) 02/16/2025 4:02 AM CDT [email or web address] Comment: Reference range: <100 Desirable range <100 mg/dL for primary prevention; <70 mg/dL for patients with CHD or diabetic patients with > or = 2 CHD risk factors. LDL-C is now calculated using the nAaya calculation, which is a validated novel method providing better accuracy than the Friedewald equation in the estimation of LDL-C. Robin SS et al. MEGHANN. 2013;310(84): 4293-8640 (http://education.Digabit.Silverpop/faq/YVI783) Blood BLOOD SPECIMEN / Unknown [facility] / Unknown 02/15/2025 1:38 PM CDT 02/15/2025 1:38 PM CDT Teddy Montero MD CHEMISTRY Final Result [facility] [address] [place] [address], * ANTI HIV 1/2 [82600.0] (02/15/2025 1:38 PM CDT) HIV FINAL INTERPRETATOIN HIV NEGATIVE 02/17/2025 3:20 AM CDT [facility] Comment: HIV-1 antigen and HIV-1/HIV-2 antibodies were not detected. There is no laboratory evidence of HIV infection. HIV AG/AB, 4TH GEN NON-REACTIV E NON-REAC TIVE 02/17/2025 3:20 AM CDT [facility] Blood BLOOD SPECIMEN / Unknown [facility] / Unknown 02/15/2025 1:38 PM CDT 02/15/2025 1:38 PM CDT us Teddy Montero MD SEND OUTS Final Result Performing Organization Address [facility] Co de Phone Number [facility] [address] [address], [place] [phone] * FSH (02/15/2025 1:38 PM CDT) FSH 6.7 mIU/mL 02/16/2025 6:44 AM CDT [facility] Comment: Reference Range Follicular Phase 2.5-10.2 Mid-cycle Peak 3.1-17.7 Luteal Phase 1.5- 9.1 Postmenopausal 23.0-116.3 Blood BLOOD SPECIMEN / Unknown [facility] / Unknown 02/15/2025 1:38 PM CDT 02/15/2025 1:38 PM CDT us Teddy Montero MD CHEMISTRY Final Result Performing Organization Address [facility] Co de Phone Number [facility] [address] [address], [place] [phone] * VITAMIN B12 (02/15/2025 1:38 PM CDT) VITAMIN B12 631 200 - 1100 pg/mL 02/16/2025 6:39 AM CDT [facility] Blood BLOOD SPECIMEN / Unknown [facility] / Unknown 02/15/2025 1:38 PM CDT 02/15/2025 1:38 PM CDT us Teddy Montero MD CHEMISTRY Final Result Performing Organization Address [facility] Co de Phone Number [facility] [address] [address], * ANTI HCV (11/07/2003 9:35 AM CDT) ANTI HCV Non-reactiv e 11/07/2003 9:35 AM CDT Narrative 11/09/2003 11:25 AM CDT Ordered by an unspecified provider. us Other Clinical Staff SEND OUTS Final Resul t from Last 3 Months or Most Recently Relevant to Health Maintenance Insurance [facility] [employer] Care Teams School Psychologist Relationship Specialty [place] [address] [place], [place] [id number] PCP - General Family Practice 12/13/23
--- NOTE | 2025-03-21 08:06 | ED.GENADULT ---
HPI - General Adult General Date Seen: 03/21/25 Chief complaint: Abdominal Pain Stated complaint: R abdominal pain Time Seen by Provider: 03/21/25 08:06 History of Present Illness HPI narrative: 39 yo F with the past surgical history including hysterectomy (but not oophorectomy) done for endometriosis, appendectomy, presenting to the ER today with her for evaluation of abdominal pain. 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 At about 4:00 a.m. when she was on a shift she had onset of pretty severe pain in her abdomen mostly in the right upper quadrant. It is a twisting and a shooting pain that shoots from the right upper quadrant toward her lower abdomen. It is intense. It makes her nauseous but she did not vomited. No fever. Bowel movements have been normal. Urination has been normal. She does not get any menstrual cycle because she has had hysterectomy. She has never had similar pains. No history of similar pains for more mild pains in the right upper quadrant. No known history of gallstones. Related Data Home Medications ?Medication ?Instructions ?Recorded ?Confirmed bupropion HCl 150 mg 24 hr tablet, 150 mg PO QAM 12/25/22 03/21/25 extended release lorazepam 0.5 mg tablet 0.5 mg PO DAILY PRN 12/25/22 08/06/24 escitalopram oxalate 10 mg tablet 10 mg PO DAILY 03/21/25 03/21/25 Previous Rx's ?Medication ?Instructions ?Recorded hydrocodone 5 mg-acetaminophen 325 1 tab PO Q6H PRN pain #15 tabs 03/21/25 mg tablet Allergies Allergy/AdvReac Type Severity Reaction Status Date / Time phenazopyridine Allergy Severe Anaphylaxis Verified 08/06/24 12:54 ciprofloxacin Allergy Intermediate Verified 08/06/24 12:54 PFSH PFS Medical History Recurrent herpes labialis ?B00.1 - Herpesviral vesicular dermatitis (ICD-10) Nicotine dependence ?F17.200 - Nicotine dependence, unspecified, uncomplicated (ICD-10) Mixed anxiety depressive disorder ?F41.8 - Other specified anxiety disorders (ICD-10) Fatigue ?R53.83 - Other fatigue (ICD-10) Endometriosis ?N80.9 - Endometriosis, unspecified (ICD-10) Depression ?F32.A - Depression, unspecified (ICD-10) Chronic insomnia ?F51.04 - Psychophysiologic insomnia (ICD-10) Surgical History Status post hysterectomy (02/12/16) ?Z90.710 - Acquired absence of both cervix and uterus (ICD-10) Status post cone biopsy of cervix (2010) ?Z98.890 - Other specified postprocedural states (ICD-10) Family History Mother Breast cancer, Onset Age: 48 Paternal Grandfather Colon cancer, Onset Age: 60 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: , 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, 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 Smoking Status: Current some day smoker What tobacco products do you use: cigarettes Years smoked: 20 Smoking quit date/years: <= 15 years ago Do you use any of these nicotine containing products: None Second hand tobacco smoke exposure: No How often do you have a drink containing alcohol: monthly or less Alcohol type: beer How many standard drinks containing alcohol do you have on a typical day: 5 or 6 How often do you have six or more drinks on one occasion: Less than monthly AUDIT-C Alcohol total score: 4 Non-prescribed substance use: denies use Caffeine: Yes (Daily) service: No Exam Narrative: Exam Narrative: Constitutional: Appears well-developed and well-nourished. Alert. Looks very uncomfortable, moaning. As I encounter the patient she is actually on all fours on her hands and knees because her abdomen is hurting. After pain meds, able to get a much better exam. HENT: Head: Atraumatic. Nose: Nose normal. Mouth/Throat: Oral mucosa is clear and moist. no trismus. Pharynx normal. Tonsils symmetric. No tonsillar enlargement, erythema, or exudate. Eyes: Conjunctivae normal. EOM normal. Pupils equal, round, and reactive to light. No scleral icterus. Neck: Normal range of motion. Neck supple. No tracheal deviation present. Cardiovascular: Normal rate, regular rhythm. No gallop. No friction rub. No murmur heard. Symmetric radial artery pulses Pulmonary/Chest: Effort normal. No stridor. No respiratory distress. No wheezes. No rales. No rhonchi . No tenderness. Abdominal: Soft. Bowel sounds normal. No distension. No mass. Right upper quad> epigastric and right lower quadrant> suprapubic and left lower quadrant tenderness. No rebound. No guarding. Musculoskeletal: RUE: Normal range of motion. No tenderness. No deformity LUE: Normal range of motion. No tenderness. No deformity RLE: Normal range of motion. No edema. No tenderness. No deformity LLE: Normal range of motion. No edema. No tenderness. No deformity Neurological: Alert and oriented to person, place, and time. Normal strength. CN II-VII intact. No sensory deficit. GCS eye subscore is 4. GCS verbal subscore is 5. GCS motor subscore is 6. Normal coordination Skin: Skin is warm and dry. No rash noted. No pallor. Normal capillary refill. Psychiatric: Initially moaning due to pain. After pain meds is much more conversant. 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 Normal mood. Normal affect. Const: Vital Signs, click to edit/add: Vital Signs - 24 hr 03/21/25 07:42 03/21/25 09:23 03/21/25 13:06 Temperature 98.3 F 99.3 F Pulse Rate [Right Pulse Oximeter] 95 88 85 Respiratory Rate 18 16 16 Blood Pressure [Le ft Arm] 125/95 H Blood Pressure [Ri ght Upper Arm] 152/83 H 124/79 Pulse Oximetry 100 100 98 Oxygen Delivery Me thod Room Air Room Air 03/21/25 13:52 Temperature Pulse Rate [Right Pulse Oximeter] 84 Respiratory Rate 16 Blood Pressure [Le ft Arm] 114/65 Blood Pressure [Ri ght Upper Arm] Pulse Oximetry 95 Oxygen Delivery Me thod Room Air Course Course ED Course: Recheck-pain improved enough after 50 mcg fentanyl to go to ultrasound Reevaluation(s) Reevaluation #1: Recheck-back from ultrasound. Did have another flare pain. Received a 2nd dose of fentanyl. I recheck the patient. She is much calmer. No longer miserable an on all fours because of pain. On exam she is most tender in the right upper quadrant but also tender in the epigastrium, periumbilical region, right lower quadrant, suprapubic region and left lower quadrant. No left upper quadrant tenderness. No CVA tenderness. Abdomen is nondistended. No definite peritoneal findings such as guarding or rebound. Much more conversant and able to provide history. Vital Signs Vital signs: Initial Vital Signs Temperature 98.3 F 03/21/25 07:42 Temperature Source Temporal Artery Scan 03/21/25 07:42 Pulse Rate 95 03/21/25 07:42 Respiratory Rate 18 03/21/25 07:42 Blood Pressure 152/83 H 03/21/25 07:42 Blood Pressure Mean 106 H 03/21/25 07:42 Blood Pressure Position Sitting 03/21/25 07:42 Pulse Oximetry 100 03/21/25 07:42 Oxygen Delivery Method Room Air 03/21/25 07:42 Vital Signs Temperature 98.3 F 03/21/25 07:42 Pulse Rate 95 03/21/25 07:42 Respiratory Rate 18 03/21/25 07:42 Blood Pressure 152/83 H 03/21/25 07:42 Pulse Oximetry 100 03/21/25 07:42 Oxygen Delivery Method Room Air 03/21/25 07:42 Temperature 99.3 F 03/21/25 13:06 Pulse Rate 84 03/21/25 13:52 Respiratory Rate 16 03/21/25 13:52 Blood Pressure 114/65 03/21/25 13:52 Pulse Oximetry 95 03/21/25 13:52 Oxygen Delivery Method Room Air 03/21/25 13:52 Medications Administered Medications: Generic Name Dose Route Start Last Admin Trade Name Freq PRN Reason Stop Dose Admin Hydromorphone HCl 0.5 mg 03/21/25 11:50 03/21/25 12:15 Hydromorphone 0.5 Mg/0.5 Ml Inj IVP 0.5 mg Q1H PRN Administration Pain Discontinued Medications Generic Name Dose Route Start Last Admin Trade Name Freq PRN Reason Stop Dose Admin Bupivacaine HCl 30 ml 03/21/25 14:57 03/21/25 14:57 Bupivacaine 0.5% 30 Ml INJECTION 03/21/25 14:58 20 ml ONCE ONE Administration Fentanyl 50 mcg 03/21/25 08:10 03/21/25 08:23 Fentanyl 100 Mcg/2 Ml Inj IVP 03/21/25 08:11 50 mcg ONCE ONE Administration Fentanyl 50 mcg 03/21/25 08:37 03/21/25 11:17 Fentanyl 100 Mcg/2 Ml Inj IVP 50 mcg Q5M PRN Administration Hydromorphone HCl 0.5 mg 03/21/25 13:36 03/21/25 13:47 Hydromorphone 0.5 Mg/0.5 Ml Inj IVP 03/21/25 13:37 0.5 mg Q10M ONE Administration Piperacillin Sod/Tazobactam 100 mls @ 200 mls/hr 03/21/25 11:49 03/21/25 13:15 Sod 4.5 gm/ Sodium Chloride IVPB 03/21/25 11:50 Infused ONCE ONE Infusion Sodium Chloride 1,000 mls @ 1,000 mls/hr 03/21/25 12:00 03/21/25 12:13 0.9 % Sodium Chloride 1000 Ml IV 03/21/25 12:59 1,000 mls/hr .Q1H CARLOS Administration Ketorolac Tromethamine 15 mg 03/21/25 08:10 03/21/25 08:23 Ketorolac 15 Mg/Ml Inj IVP 03/21/25 08:11 15 mg ONCE ONE Administration Ondansetron HCl 4 mg 03/21/25 08:10 03/21/25 08:20 Ondansetron 2 Mg/Ml Inj IVP 03/21/25 08:11 4 mg ONCE ONE Administration Medical Decision Making MDM Narrative Medical decision making narrative: 39-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 She initially reported that she has never had pain like this before but further ER course she actually did report that she has occasional brief episodes of pain but nothing ever even close to this intensity and severity Differential here includes gallstones, right-sided kidney stone, pyelonephritis, hepatitis, transverse colitis, perforated gastric ulcer. She is already status post appendectomy and hysterectomy. Initial labs show white count but otherwise reassuring. Ultrasound of her gallbladder shows polyps and contracted gallbladder but no definitive stones. Normal wall thickness. No definite signs of acute cholecystitis. Although I was highly suspicious for gallstones, broader differential was considered and we went ahead with CT scan. CT scan came back showing that there were, in fact, gallstones in the gallbladder. No definite signs of the dilation of her biliary tract. No gallbladder wall thickening or pericholecystic inflammation. Although labs are reassuring, patient does have persistent pain his required several doses of fentanyl to keep some degree of comfort here in the ER. This persisting pain is concerning that she is probably early in the course of evolving acute cholecystitis. I had a detailed discussion with the patient and her mother about of the potential spectrum of pathology here ranging from asymptomatic gallstones to biliary colic to cholecystitis to cholangitis/choledocholithiasis. At this point were suspicious this is probably in the early phases of acute cholecystitis. After some discussion, the patient does not feel comfortable discharging home. I recommended admission for pain control and surgical consultation. We did consult with General surgery, Dr. Valencia. She reviewed the patient's case and imaging. She feels that it is reasonable and appropriate to go ahead with cholecystectomy. After some discussion between the surgeon, hospitalist, and myself, it was determined that the patient can go directly from the ER to the preop area and with plans for laparoscopic cholecystectomy she has been this afternoon. If the surgery is uncomplicated and postop courses good she may be able to discharge after an operation, without an overnight stay in the hospital. However if her operation is complicated postop course is difficult she will be admitted to the hospitalist service. Lab Data Labs: Lab Results 03/21/25 03/21/25 Range/Units 07:50 Unknown WBC 12.39 H (4.50-11.00) K/uL RBC 4.52 (4.00-5.20) m/uL Hgb 13.8 (12.0-16.0) gm/dL Hct 41.1 (33.0-51.0) % MCV 91 (80-100) fL MCH 31 (26-34) pg MCHC 34 (32-36) gm/dL RDW Coeff of Joao 12.1 (11.5-15.5) % Plt Count 291 (140-440) K/uL Neut % (Auto) 83.1 H (42.0-72.0) % Lymph % (Auto) 11.6 L (20-44) % [place] % (Auto) 4.0 (0.0-11.0) % Eos % (Auto) 0.6 (0.0-7.0) % Baso % (Auto) 0.5 (0.0-3.0) % Neut # (Auto) 10.30 H (1.7-7.0) K/uL Lymph # (Auto) 1.40 (0.90-2.90) K/uL [place] # (Auto) 0.50 (0.00-0.90) K/UL Eos # (Auto) 0.10 (0.00-0.50) K/uL Baso # (Auto) 0.10 (0.00-0.30) K/uL Abs Immat Gran (auto) 0.00 (0.00-0.30) K/uL Imm/Tot Granulo (auto) 0.2 % Sodium 140 (135-149) mmol/L Potassium 4.2 (3.6-5.1) mmol/L Chloride 101 (96-114) mmol/L Carbon Dioxide 24 (20-32) mmol/L Anion Gap 15 (7-15) mEq/L BUN 10 (5-24) mg/dL Creatinine 0.6 (0.5-1.5) mg/dL Estimated Creat Clear 103.10 Estimated GFR 116 ml/min Glucose 108 (60-115) mg/dL Calcium 9.7 (8.4-10.6) mg/dL Total Bilirubin 0.4 (0.1-1.5) mg/dL AST 26 (12-35) U/L ALT 37 H (4-35) U/L Alkaline Phosphatase 77 (40-150) U/L Total Protein 8.2 (6.0-8.3) g/dL Albumin 5.2 H (3.3-5.0) g/dL Lipase 42 (23-300) U/L Urine Color Light yellow (Yellow) Urine Appearance Clear (Clear) Urine pH 7.5 (5.0-8.5) Ur Specific [place] 1.020 (1.000-1.030) Urine Protein Negative (Negative) Urine Glucose (UA) Negative (Negative) Urine Ketones Negative (Negative) Urine Blood Negative (Negative) Urine Nitrite Negative (Negative) Urine Bilirubin Negative (Negative) Urine Urobilinogen 0.2 (0.2-1.0) Ur Leukocyte Esterase Negative (Negative) Urine RBC 0-2 (0-2) Urine WBC 5-10 A (0-5) Ur Squamous Epith Cells None (None-Few) Urine Bacteria None (None) Imaging Data Right upper quadrant ultrasound: Attestation: I have reviewed the pertinent imaging results. My impression: Verbal report from laboratory development technician is that the gallbladder is contracted. Patient has some gallbladder polyps but no visible stones. Wall thickness is normal. No definite sonographic Baez sign Radiologist's impression: IMPRESSION: 1. Contracted gallbladder with multiple polyps. No gallbladder stones. 2. Study otherwise negative. CT scan - abdomen: Attestation: I have reviewed the pertinent imaging results. Radiologist's impression: IMPRESSION: Cholelithiasis but no CT evidence of acute cholecystitis or common duct obstruction. Discharge Plan Discharge Activity Level: No strenuous activity Discharge Diet: Low Fat/Low Cholesterol
--- NOTE | 2025-03-21 08:10 | CRLHL7_ITS ---
For Patients: As a result of the Century Cures Act, medical imaging exams and procedure reports are released immediately into your electronic medical record. You may view this report before your referring provider. If you have questions, please contact your health care provider. INDICATION: Right upper quadrant abdomen pain TECHNIQUE: Ultrasound abdomen limited. Sonographic images of the right upper quadrant were obtained using montemayor-scale and color Doppler images. COMPARISON: None FINDINGS: Liver: Normal in size and echotexture. No masses. No intrahepatic biliary dilatation. Gallbladder: Contracted. No stones or sludge. Multiple gallbladder polyps measuring up to 7 millimeter. No gallbladder wall thickening otherwise. No pericholecystic fluid. Negative sonographic Baez`s sign. Common bile duct: 4 mm. Pancreas: Normal. Right kidney: 12.5 x 5.5 x 3.9 cm. Cortex: 1.9 cm. Normal echotexture and cortex. No suspicious masses, stones, or hydronephrosis. Vasculature: Proximal abdominal aorta and IVC are normal. IMPRESSION: 1. Contracted gallbladder with multiple polyps. No gallbladder stones. 2. Study otherwise negative. Dictated by Toribio Huertas MD @ 03/21/2025 8:55:04 AM (Electronically Signed)
[2025-03-21] MEDS: ONDANSETRON 2 MG/ML inj 4 MG IVP (08:20)
[2025-03-21 08:22] LABS: Hematocrit* 41.1 % (33.0-51.0); Hemoglobin* 13.8 gm/dL (12.0-16.0); Immature Granulocytes Pct Auto 0.2 %; Mean Corpuscular HGB Conc 34 gm/dL (32-36); Mean Corpuscular Hemoglobin 31 pg (26-34); Mean Corpuscular Volume 91 fL (80-100); RDW Coefficient of Variation % 12.1 % (11.5-15.5); Red Blood Count* 4.52 m/uL (4.00-5.20); White Blood Count* 12.39 K/uL (4.50-11.00)
[2025-03-21 08:26] LABS: Immature Granulocytes Abs Auto 0.00 K/uL (0.00-0.30); Lymphocytes Absolute Auto 1.40 K/uL (0.90-2.90); Slide Review Reflex No
[2025-03-21 08:38] LABS: Albumin* 5.2 g/dL (3.3-5.0); Chloride* 101 mmol/L (96-114); Potassium* 4.2 mmol/L (3.6-5.1); Sodium* 140 mmol/L (135-149)
[2025-03-21 08:41] LABS: Alanine Aminotransferase* 37 U/L (4-35); Alkaline Phosphatase* 77 U/L (40-150); Anion Gap 15 mEq/L (7-15); Aspartate Amino Transferase* 26 U/L (12-35); Bilirubin Total* 0.4 mg/dL (0.1-1.5); Blood Urea Nitrogen* 10 mg/dL (5-24); Calcium* 9.7 mg/dL (8.4-10.6); Carbon Dioxide* 24 mmol/L (20-32); Creatinine* 0.6 mg/dL (0.5-1.5); Est. Creatinine Clearance* 103.10; Estimated Glomerular Filt Rate 116 ml/min; Glucose* 108 mg/dL (60-115); Total Protein* 8.2 g/dL (6.0-8.3)
--- NOTE | 2025-03-21 09:13 | CRLHL7_ITS ---
For Patients: As a result of the Century Cures Act, medical imaging exams and procedure reports are released immediately into your electronic medical record. You may view this report before your referring provider. If you have questions, please contact your health care provider. INDICATION: Right upper quadrant and epigastric pain. COMPARISON: None TECHNIQUE: CT examination of the abdomen and pelvis was performed following the uneventful intravenous administration of 69 cc of Isovue 370. Thin section axial images were obtained from the lung bases through the pubic symphysis. Oral contrast was not administered. Please note that all CT scans at this facility use dose modulation, iterative reconstruction, and/or weight-based dosing when appropriate to reduce radiation dose to as low as reasonably achievable. FINDINGS: LUNG BASES: The lung bases as visualized appear normal.The heart size is normal at the lung bases. LIVER/BILIARY SYSTEM:The liver is normal in size and configuration. There is no focal mass and there is no intra- or extra hepatic biliary ductal dilatation.Cholelithiasis. No CT evidence of wall thickening or pericholecystic fluid. No visible choledocholithiasis ADRENALS: Normal KIDNEYS, URETERS and BLADDER:The kidneys appear normal. No visible mass, calculus or hydronephrosis. The ureters and bladder as visualized appear normal. SPLEEN:Normal appearance. PANCREAS: Appears normal. RETROPERITONEUM and MESENTERY: There is no mass, adenopathy or aortic aneurysm. GASTROINTESTINAL SYSTEM: There is no evidence of diverticulitis, colitis, mechanical obstruction, or appendicitis. The small bowel as visualized appears normal.Mild diffuse colonic fecal retention. PELVIS: No mass, adenopathy or free fluid. OSSEOUS STRUCTURES and ABDOMINAL WALL: There is an age-appropriate appearance of the osseous structures.No significant abdominal wall defect. OTHER: No free fluid or free air. IMPRESSION: Cholelithiasis but no CT evidence of acute cholecystitis or common duct obstruction. Please note that all CT scans at this facility use dose modulation, iterative reconstruction, and/or weight-based dosing when appropriate to reduce radiation dose to as low as reasonably achievable. Dictated by Rian Quintero MD @ 03/21/2025 9:49:50 AM (Electronically Signed)
[2025-03-21 09:27] LABS: Appearance Urine Clear (Clear)
[2025-03-21] MEDS: PIPERACILLIN/TAZOBACTAM 4.5 GM in 0.9 % SODIUM CHLORIDE Mini-bag 100 ML IVPB (12:13)
--- NOTE | 2025-03-21 12:40 | PC.NURSE ---
pt to [facility] room 4
[2025-03-21] MEDS: BUPIVACAINE 0.5% 30 ML INJECTION (14:57)
--- NOTE | 2025-03-21 15:48 | PM.GSHP ---
History of Present Illness History of Present Illness Date Seen: 03/21/25 Chief complaint: R abdominal pain Narrative: Elva Dixon is a 39 year old female who presented to the emergency department with severe right upper quadrant abdominal pain. The pain started around 4:00 a.m.. 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 After eating she developed severe pain in her upper stomach and radiation to the right side. The pain felt like a stabbing twisting sensation that became more severe, causing her to come into the emergency department. She does report some associated nausea no vomiting. She has never had an episode like this before. She did have some diarrhea just at the start of her shift. She denies any sick contacts. Her abdominal surgical history includes a hysterectomy for endometriosis and appendectomy. Review of Systems Status of ROS: Reports: 10 or more systems reviewed and unremarkable except as noted in History and below [facility] Medical History Recurrent herpes labialis ?B00.1 - Herpesviral vesicular dermatitis (ICD-10) Nicotine dependence ?F17.200 - Nicotine dependence, unspecified, uncomplicated (ICD-10) Mixed anxiety depressive disorder ?F41.8 - Other specified anxiety disorders (ICD-10) Fatigue ?R53.83 - Other fatigue (ICD-10) Endometriosis ?N80.9 - Endometriosis, unspecified (ICD-10) Depression ?F32.A - Depression, unspecified (ICD-10) Chronic insomnia ?F51.04 - Psychophysiologic insomnia (ICD-10) Surgical History Status post hysterectomy (02/12/16) ?Z90.710 - Acquired absence of both cervix and uterus (ICD-10) Status post cone biopsy of cervix (2010) ?Z98.890 - Other specified postprocedural states (ICD-10) Family History Mother Breast cancer, Onset Age: 48 Paternal Grandfather Colon cancer, Onset Age: 60 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: , 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, 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 Smoking Status: Current some day smoker What tobacco products do you use: cigarettes Years smoked: 20 Smoking quit date/years: <= 15 years ago Do you use any of these nicotine containing products: None Second hand tobacco smoke exposure: No How often do you have a drink containing alcohol: monthly or less Alcohol type: beer How many standard drinks containing alcohol do you have on a typical day: 5 or 6 How often do you have six or more drinks on one occasion: Less than monthly AUDIT-C Alcohol total score: 4 Non-prescribed substance use: denies use Caffeine: Yes (Daily) service: No Meds Home Medications and Allergies Home Medications ?Medication ?Instructions ?Recorded ?Confirmed ?Type bupropion HCl 150 mg 24 hr tablet, 150 mg PO QAM 12/25/22 03/21/25 History extended release lorazepam 0.5 mg tablet 0.5 mg PO DAILY PRN 12/25/22 08/06/24 History escitalopram oxalate 10 mg tablet 10 mg PO DAILY 03/21/25 03/21/25 History hydrocodone 5 mg-acetaminophen 325 1 tab PO Q6H PRN pain #15 tabs 03/21/25 Rx mg tablet Allergies Allergy/AdvReac Type Severity Reaction Status Date / Time phenazopyridine Allergy Severe Anaphylaxis Verified 08/06/24 12:54 ciprofloxacin Allergy Intermediate Verified 08/06/24 12:54 Exam Narrative: Exam Narrative: General: Alert and oriented, no acute distress Respiratory: Equal breath rise bilaterally, maintained on room air CV: Well perfused Abdomen: Soft, tender to palpation to right upper quadrant, positive Baez sign. No guarding or rebound. Const: Vital Signs, click to edit/add: Vital Signs - 24 hr 03/21/25 07:42 03/21/25 09:23 03/21/25 13:06 Temperature 98.3 F 99.3 F Pulse Rate [Right Pulse Oximeter] 95 88 85 Respiratory Rate 18 16 16 Blood Pressure [Le ft Arm] 125/95 H Blood Pressure [Ri ght Upper Arm] 152/83 H 124/79 Pulse Oximetry 100 100 98 Oxygen Delivery Me thod Room Air Room Air 03/21/25 13:52 Temperature Pulse Rate [Right Pulse Oximeter] 84 Respiratory Rate 16 Blood Pressure [Le ft Arm] 114/65 Blood Pressure [Ri ght Upper Arm] Pulse Oximetry 95 Oxygen Delivery Me thod Room Air Results Results Labs: Labs with mild leukocytosis (12.9), LFTs within normal limits. Abdomen CT scan report/results: report reviewed and image reviewed Abdominal ultrasound report/results: report reviewed and image reviewed Progress Note:A&P Assessment and plan (1) Cholecystitis: Status: Acute Assessment and Plan: Patient presents with severe right upper quadrant abdominal pain. Workup was obtained in the emergency department. She does have mild elevation of her WBC. An abdominal ultrasound showed per the radiology report multiple polyps of the gallbladder, no wall thickening or pericholecystic fluid. No stones were identified on that imaging. An abdomen/pelvis CT scan was obtained which showed in contrast to the ultrasound distension of the gallbladder with the presence of opaque stones. On my review of the imaging the abdominal ultrasound is limited in appearance and I am suspicious for the presence of stones/sludge. Certainly the patient's symptoms are characteristic for gallbladder disease. I had a detailed conversation with the patient regarding the diagnosis of biliary colic versus chronic cholecystitis. We discussed the treatment options including observation with diet modification and laparoscopic cholecystectomy. We discussed the risks of surgery (including but not limited to) the risks of bleeding, infection, injury to other structures in the abdomen including bile duct injury, bile leak and conversion to an open operation. We discussed the possibility that the patient's pain not improve with surgery. We discussed the possibility of permanent post-operative diarrhea that may require medical management. Additionally, the conceivably of complications requiring additional surgery or further hospitalization were also discussed including the risks of [place], respiratory failure, stroke and blood clots. The patient voiced an understanding of our conversation, had the opportunity to ask questions, agreed to accept the risks of surgery and asked that we proceed with surgery. Plan -OR for laparoscopic cholecystectomy
--- NOTE | 2025-03-21 15:55 | P.GSOP_ITS ---
Operative Note Date of procedure: 03/21/25 Pre-op diagnosis: Acute cholecystitis Post-op diagnosis: Same Type of Procedure: Laparoscopic cholecystectomy Indications: Patient is a 39-year-old female with clinical workup and symptoms concerning for cholecystitis. Risks and benefits of operative intervention were discussed at length with the patient. Risks included but was not limited to: Bleeding, infection, risk of damage to surrounding structures, possible need for additional procedures, possible need to convert to an open operation and postoperative complications such as pneumonia, pulmonary emboli or CO. All questions and concerns were addressed with the patient agreeing to proceed. Procedure Description: After discussing the risks and benefits of the procedure, the patient signed informed consent.? The operative site was marked and the patient was brought to the operating room and placed on the operating table in supine position.? Care was taken to pad the patient's pressure points.?? The patient was then intubated by anesthesia.?? The operative site was then prepped and draped in the usual sterile fashion.? A time-out was then performed. Entrance to the abdomen was gained via a 5 mm Visiport in the left upper quadrant. The abdomen was insufflated and briefly surveyed for signs of injury. There was none. 11 mm umbilical port was placed as well as 2 working ports along the right costal margin. Patient was then placed in reverse Trendelenburg position with the right side up. The gallbladder was distended and tense. The fundus was grasped and retracted cephalad. A small amount of dissection was needed to free omental adhesions from the gallbladder. The infundibulum was grasped. A combination of hook cautery and blunt dissection was used to carefully dissect out the cystic duct and artery. Once only 2 structures could be seen entering the gallbladder 2 clips were 1st placed proximally on the artery and 1 clip distal before being transected. The cystic artery was carefully dissected away from the gallbladder body and out of the operative field. A small branch off of the artery was clipped with a 5 mm clip before being transected with cautery. The cystic duct was then additionally dissected free of surrounding tissue. 2 clips were placed proximally and 1 clip distally before being transected with the scissors. The gallbladder was then taken off of the liver bed. A small amount of bile did leak during this portion of the procedure. The gallbladder was then removed from the abdomen using an Endo- Catch bag. A small amount of bile which had spilled was suctioned from the abdomen. The umbilical port fascia was closed with an 0 Vicryl. A 2nd look in the abdomen was obtained to ensure no incarceration of omentum in the closure. All of the ports on the patient's right side were removed under direct visualization. The left upper quadrant port was used to evacuate the CO2 before being removed. The skin was closed with absorbable subcuticular suture. Instrument sponge and needle counts were correct at the end of the case. The p atient was then woken and transferred to the PACU in stable condition. Findings: Distended gallbladder with associated inflammation. Anesthesia: GETA Surgeon: Erinn Valencia MD Estimated blood loss (mL): 20 Specimen: Gallbladder Condition: stable Disposition: PACU
--- NOTE | 2025-03-21 16:11 | P.ANES_ITS ---
Anesthesia Charges Start Date/Time Anesthesia Start Date: 03/21/25 Anesthesia Start Time: 14:26 Stop Date/Time Anesthesia Stop Date: 03/21/25 Anesthesia Stop Time: 16:05 Coding CPT Codes CPT Codes: ANESTH SURG UPPER ABDOMEN - 24093 ([id number]) P2 - PATIENT W/MILD SYST DISEASE, QZ - TEST ENGINEER SVC W/O SAFETY ADMINISTRATOR BY
--- NOTE | 2025-03-21 16:11 | W.ANESCHARGE ---
Anesthesia Charges Start Date/Time Anesthesia Start Date: 03/21/25 Anesthesia Start Time: 14:26 Stop Date/Time Anesthesia Stop Date: 03/21/25 Anesthesia Stop Time: 16:05 Coding CPT Codes CPT Codes: ANESTH SURG UPPER ABDOMEN - 87394 ([id number]) P2 - PATIENT W/MILD SYST DISEASE, QZ - FACILITIES MAINTENANCE WORKER SVC W/O COMPLIANCE OFFICER BY
[2025-03-21] MEDS: ONDANSETRON 2 MG/ML inj IVP (17:04)
[2025-03-21] MEDS: HYDROCODONE-ACETAMIN 5-325 MG 1 TAB PO ×2 (17:48→23:27)
[2025-03-21] MEDS: phenoL 1.4 % THROAT SPRAY 1 SPRAY MUCOUS MEM (19:01)
[2025-03-21] MEDS: VALACYCLOVIR HCL 500 MG TABLET 2000 MG PO (20:50)
[2025-03-22] MEDS: HYDROCODONE-ACETAMIN 5-325 MG 1 TAB PO ×2 (04:41→08:20)
[2025-03-22 05:20] VITALS: RESP 18
[2025-03-22 05:22] LABS: Ur HCG Qualitative* Negative (Negative)
--- NOTE | 2025-03-22 05:41 | PC.NURSE ---
End of Shift Note 256 Patient has been very pleasant and cooperative throughout shift. Patient walked around the unit in the evening and within her room on and off at night time. VSS. Independent. Afebrile. Patient was on restful vitals. Uses call light appropriately. Call light within reach.
[2025-03-22 07:00] VITALS: BP 120/80; PULSE 86; RESP 16; TEMP 36.9; O2SAT 98
[2025-03-22] MEDS: ESCITALOPRAM 10 MG TABLET PO (08:20)
[2025-03-22] MEDS: VALACYCLOVIR HCL 500 MG TABLET 2000 MG PO (08:27)
--- NOTE | 2025-03-22 10:52 | PC.NURSE ---
End of shift report [id number]: Pleasant and cooperative with cares. Pain well managed with current regimen. Pain in right shoulder reported, encouraged patient to ambulate to aid with pain control. Regular diet, tolerated breakfast well, did report mild abdominal discomfort after meal. Denies nausea and vomiting. Bowel sounds active x 4 quadrants. discharge paperwork reviewed, ambulated with patient to private vehicle.
== END 2025-03-22 10:50 | disposition home or self-care (01) ==
LOC: ED 11:57 → SS 12:33 → MEDSURG 16:59
PROVIDERS: Nurse Anesthetist, Certified Registered; Emergency Provider Emergency Medicine; PCP Family Medicine; Visit Provider Surgery
PROC: 0FT44ZZ Resection of Gallbladder, Percutaneous Endoscopic Approach (ICD-10-PCS; CPT 47562; principal; 2025-03-21 14:30)
DX: K81.0 Acute cholecystitis (principal)
CPT/HCPCS: 47562; 00790; 36415; 74177; 76705; 80053; 81001; 81025; 83690; 85025; 87086; 99284; 99285; A9270; J0330; J0665; J1171; J1200; J1630; J1885; J2250; J2371; J2405; J2543; J2704; J2710; J3010; J3490; J7030; Q9967